=== PATIENT | female | born 1990 | race Two or more races ===

== ENCOUNTER 2020-02-05 17:05 | Emergency (ER) | payer SELFPAY ==
[~2020-02-05] VITALS: Ht 167.6 cm; Wt 96.0 kg
[~2020-02-05 17:05] MED LIST: ALBU2.5V8 IH
[2020-02-05 17:20] VITALS: BP 120/69
[2020-02-05] MEDS ORDERED: traMADol 50 MG TABLET PO ONE (17:30)
--- NOTE | 2020-02-05 17:32 | PHYS DOC ---
Past Medical History Past Medical History: Asthma Past Surgical History: Smoking Status: Never Smoker Alcohol Use: Occasionally Drug Use: None General Adult EDM: Chief Complaint: KNEE INJURY HPI: HPI: Patient is a 29 year old female who presents with was at work making sandwiches. She states she had a bent down to grab some bread and when she bent down yesterday she felt her right knee go outward and then pop back inward. She states that she cannot bear weight on it as it is too painful. She states that she cannot extend it or bend it because it is too painful. Patient has anterior patella pain. No tenderness with palpation to the anterior knee, lateral, medial, posterior. 1+ swelling but no bruising or deformity is noted. She does not have to have any laxity of the joint but states that the knee feels unstable when she is moving it. She states she has been taking Tylenol at home. Patient rates her pain a 7 out of 10 states it does not radiate and is an aching pain Review of Systems: Review of Systems: Constitutional: Denies fever or chills. [] Eyes: Denies change in visual acuity. [] HENT: Denies nasal congestion or sore throat. [] Respiratory: Denies cough or shortness of breath. [] Cardiovascular: Denies chest pain or edema. [] GI: Denies abdominal pain, nausea, vomiting, bloody stools or diarrhea. [] : Denies dysuria. [] Musculoskeletal: Denies back pain. Right knee joint pain. [] Integument: Denies rash. [] Neurologic: Denies headache, focal weakness or sensory changes. [] Endocrine: Denies polyuria or polydipsia. [] Lymphatic: Denies swollen glands. [] Psychiatric: Denies depression or anxiety. [] Heart Score: Risk Factors: Risk Factors: DM, Current or recent (<one month) smoker, HTN, HLP, family history of CAD, obesity. Risk Scores: Score 0 - 3: 2.5% MACE over next 6 weeks - Discharge Home Score 4 - 6: 20.3% MACE over next 6 weeks - Admit for Clinical Observation Score 7 - 10: 72.7% MACE over next 6 weeks - Early Invasive Strategies Allergies: Allergies: Allergies Coded Allergies Type Severity Reaction Last Updated Verified No Known Drug Allergies 11/28/13 No Physical Exam: PE: Constitutional: Well developed, well nourished, no acute distress, non-toxic appearance. [] HENT: Normocephalic, atraumatic, bilateral external ears normal, oropharynx moist, no oral exudates, nose normal. [] Eyes: PERRLA, EOMI, conjunctiva normal, no discharge. [] Neck: Normal range of motion, no tenderness, supple, no stridor. [] Cardiovascular:Heart rate regular rhythm, no murmur [] Lungs & Thorax: Bilateral breath sounds clear to auscultation [] Abdomen: Bowel sounds normal, soft, no tenderness, no masses, no pulsatile masses. [] Skin: Warm, dry, no erythema, no rash. [] Back: No tenderness, no CVA tenderness. [] Extremities: No tenderness, no cyanosis, no clubbing, right knee ROM not intact, right knee 1+ anterior edema. [] Neurologic: Alert and oriented X 3, normal motor function, normal sensory function, no focal deficits noted. [] Psychologic: Affect normal, judgement normal, mood normal. [] Current Patient Data: Vital Signs: Vital Signs Date Time Temp Pulse Resp B/P (MAP) Pulse Ox O2 Delivery O2 Flow Rate FiO2 02/05/20 17:20 98.5 64 16 120/69 (86) 98 Room Air 98.5 EKG: EKG: [] Radiology/Procedures: Radiology/Procedures: [] Impression: [facility] [address] [place] [address] IMAGING REPORT Signed PATIENT: DENNY JENSEN ACCOUNT: [id number] : 1990 LOCATION: ER AGE: 29 SEX: F EXAM STATUS: REG ER ORD. PHYSICIAN: MERLIN MARES APRN REASON: pain PROCEDURE: KNEE RIGHT 3V EXAM: Right knee, 3 views HISTORY: Right knee pain. COMPARISON: None. FINDINGS: No fractures are identified. Joint spaces are maintained. Alignment is normal. There is a small joint effusion. IMPRESSION: 1. Small joint effusion. No fracture. Electronically signed by: Alejo Rogers MD (02/05/2020 6:08 PM) [facility] DICTATED and SIGNED BY: CAMELIA ROGERS MD DATE: 02/05/201807 Course & Med Decision Making: Course & Med Decision Making Pertinent Labs and Imaging studies reviewed. (See chart for details) Skin pink warm and dry. Alert and oriented. Patient is using crutches to ambulate. Denies numbness or tingling, chest pain, shortness of breath, fever, cough, coolness of the extremity, skin color change, sensation. She denies weakness of the extremity. Cap refill is less than 3 seconds. Pedal pulses strong and present. Patient's history is asthma and a . The joint is not red, hot or tender. Knee immobilizer is placed. Patient to continue using her crutches and the knee immobilizer. Patient to call make an appoint with orthopedics. [] Fadyon Disclaimer: Omega Disclaimer: This electronic medical record was generated, in whole or in part, using a voice recognition dictation system. Departure Departure Impression: Primary Impression: Knee pain, right Qualified Codes: M25.561 - Pain in right knee Disposition: HOME, SELF-CARE Condition: STABLE Referrals: NO PCP (PCP) SHANNA CHRISTIAN MD Patient Instructions: Knee Effusion Additional Instructions: Follow up with orthopedic by calling for a appointment tomorrow. Use medication for pain as prescribed. Do not drive on this medication or drink or do any other kind of drugs on this medication. Use ice to help with pain. Nonweightbearing. Continue using your crutches and the knee immobilizer that is applied to. Scripts Hydrocodone/Apap 5-325 (NORCO 5-325 TABLET) 1 Each Tablet 1 TAB PO PRN Q6HRS PRN for PAIN, #10 TAB 0 Refills Prov: MERLIN MARES APRN 02/05/20 Justicifation of Admission Dx: Justifications for Admission: Justification of Admission Dx: N/A MERLIN MARES APRN Feb 05, 2020 17:31
--- NOTE | 2020-02-05 18:10 | RAD ---
EXAM: Right knee, 3 views HISTORY: Right knee pain. COMPARISON: None. FINDINGS: No fractures are identified. Joint spaces are maintained. Alignment is normal. There is a small joint effusion. IMPRESSION: 1. Small joint effusion. No fracture. Electronically signed by: Alejo Rogers MD (02/05/2020 6:08 PM) [facility]
[2020-02-05] MEDS ORDERED: HYDR-3164 PO (18:18)
== END 2020-02-05 18:48 | disposition home or self-care (01) ==
LOC: ER 17:05
DX: M25.561 Pain in right knee (principal); R60.0 Localized edema; J45.909 Unspecified asthma, uncomplicated; Z98.890 Other specified postprocedural states
CPT/HCPCS: 29505; 73562; 99284